=== PATIENT | female | born 1945 ===

== ENCOUNTER 2021-04-04 08:15 | Inpatient (IN) | payer OTHER ==
[~2021-04-04] VITALS: Ht 172.7 cm; Wt 90.7 kg
[2021-04-04] MEDS ORDERED: SINGULAIR10 MG PO (10:09)
[2021-04-04] MEDS ORDERED: CLARIT PO (10:09)
[2021-04-04] MEDS ORDERED: LOSARTA PO (12:32)
[2021-04-10] MEDS ORDERED: LORATADINE10 MG (09:49)
[2021-04-10] MEDS ORDERED: ATORVASTATIN CA40 MG (09:49)
[2021-04-10] MEDS ORDERED: METAFOLBIC PLU1 EACH (09:49)
[2021-04-10] MEDS ORDERED: LOSARTAN POTAS100 MG (09:49)
[2021-04-10] MEDS ORDERED: ABANEU-SL TABL1 EACH (09:49)
[2021-04-10] MEDS ORDERED: DONEPEZIL HCL5 MG (09:50)
[2021-04-10] MEDS ORDERED: MECLIZINE HCL12.5 MG (09:50)
[2021-04-12] MEDS ORDERED: INTEGRA PLUS C1 EACH PO (06:25)
[2021-04-12] MEDS ORDERED: OXYC1TAB9 PO (06:25)
[2021-04-12] MEDS ORDERED: BACTRIM DS TAB1 EACH PO (06:25)
[2021-04-12] MEDS ORDERED: XARELTO10 MG PO (06:25)
== END 2021-04-12 15:02 | DRG 470 ==
LOC: O/R 04-10 06:23 → SURH 04-10 06:23
PROVIDERS: ADMIT Orthopaedic Surgery Sports Medicine; ATTEND Orthopaedic Surgery Sports Medicine
PROC: 0SRC0J9 Replacement of Right Knee Joint with Synthetic Substitute, Cemented, Open Approach (ICD-10-PCS; principal; 2021-04-10 07:00)
DX: M17.11 Unilateral primary osteoarthritis, right knee (principal); I10 Essential (primary) hypertension; Z20.822 Contact with and (suspected) exposure to COVID-19